=== PATIENT | male | born 1980 | race Caucasian/White ===

== ENCOUNTER 2019-03-29 10:41 | Outpatient (CLI) | payer BC ==
--- NOTE | 2019-03-29 11:19 | RAD ---
LUMBAR SPINE 2 VIEWS: Date: 03/29/19 HISTORY: Back pain. FINDINGS: There are degenerative changes with mild dextroscoliosis of the lumbar spine. No fracture, subluxatio n, or bony destruction seen. IMPRESSION: Lumbar spondylosis. POS: [facility]
== END 2019-03-29 10:42 | disposition home or self-care (01) ==
LOC: SCSRAD 10:41
PROVIDERS: ATTEND Family Medicine
DX: M54.9 Dorsalgia, unspecified (principal); M47.816 Spondylosis without myelopathy or radiculopathy, lumbar region
CPT/HCPCS: 72100

== ENCOUNTER 2019-04-15 07:35 | Outpatient (CLI) | payer BC ==
--- NOTE | 2019-04-15 09:51 | MRI ---
MRI OF THE LUMBAR SPINE WITHOUT IV CONTRAST: INDICATION: History of lumbar back pain for 5 years. COMPARISON: Lumbar spinal radiographs dated 03/29/2019. FINDINGS: There are 5 lumbar-type vertebrae. There are advanced Modic end plate degenerative changes at L3-4 and L4-5. The conus is seen to horace alejandra at L1. There are multiple T2 hyperintense lesions filling the left renal sinus without leia hy dronephrosis suspicious for multiple left peripelvic cysts. This is incompletely characterized. No lymphadenopathy is grossly evident. At L5-S1, there is mild facet joint degenerative change and a broad-based bulge, but no appreciable c entral canal or neural foraminal narrowing. At L4-5, there is an asymmetric to the right broad-based disk bulge with facet hypertrophy inducing m oderate to severe right lateral recess narrowing with potential for impingement of the traversing rig ht L5 nerve root. There is mild left and moderate right neural foraminal narrowing. At L3-4, there is an asymmetric to the left broad-based disk bulge inducing moderate central canal na rrowing and severe left lateral recess narrowing with probable impingement of the traversing left L4 nerve root. The asymmetric to the left disk bulge induces moderate left and mild right neural forami nal narrowing. At L2-3, there is a broad-based bulge. No appreciable central canal or neural foraminal narrowing. At L1-L2, there is no appreciable central canal or neural foraminal narrowing. At T12-L1, there is no appreciable central canal or neural foraminal narrowing. IMPRESSION: 1. Prominent disk degenerative facet osteoarthritic change at L3-4 and L4-5 inducing moderate centra l canal narrowing at L3-4 with severe left lateral recess narrowing with probable impingement of the traversing left L4 nerve root. There is moderate left neural foraminal narrowing at L3-4. 2. Asymmetric to the right broad-based disk bulge at L4-5 induces moderate right neural foraminal na rrowing with moderate to severe narrowing of the right lateral recess with potential for impingement of the traversing right L5 nerve root. 3. Multiple T2 hyperintense lobular lesions seen filling the left renal sinus suspicious for a parap elvic cyst. Renal ultrasound is recommended for confirmation. POS: [facility]
== END 2019-04-15 07:36 | disposition home or self-care (01) ==
LOC: BICMRI 07:35
PROVIDERS: ATTEND Family Medicine
DX: M54.5 Low back pain (principal); M47.816 Spondylosis without myelopathy or radiculopathy, lumbar region; M48.061 Spinal stenosis, lumbar region without neurogenic claudication
CPT/HCPCS: 72148

== ENCOUNTER 2019-04-28 14:25 | Outpatient (CLI) | payer BC ==
--- NOTE | 2019-04-28 15:24 | ULT ---
BILATERAL RENAL ULTRASOUND: Date: 04/28/19 INDICATION: Question mass lesion seen left renal pelvis on recent MRI of lumbar spine. The MRI findings suggested parapelvic cysts. FINDINGS: Right kidney measures 12.6 cm in length. Left kidney measures 11.8 cm. There are several cystic structures in the left renal pelvis. The largest is measured at approximatel y 2.0 cm. Findings correspond to MRI scan and suggest parapelvic cysts. Small cysts inferior pole right kidney. Urinary bladder is mildly distended and appears unremarkable. Prostate is mildly enlarged. IMPRESSION: Parapelvic cysts on the left. POS: [facility]
== END 2019-04-28 14:26 | disposition home or self-care (01) ==
LOC: BICULT 14:25
PROVIDERS: ATTEND Family Medicine
DX: N28.89 Other specified disorders of kidney and ureter (principal); N28.1 Cyst of kidney, acquired
CPT/HCPCS: 76770

== ENCOUNTER 2019-09-23 18:34 | Emergency (ER) | payer BC ==
[~2019-09-23 18:34] MED LIST: Iopamidol-370 76% 500 ML 1 ML ONE
[2019-09-23 19:21] LABS: #Basophils 0.1 thou/uL (0.0-0.2); #Eosinphils 0.2 thou/uL (0.0-0.7); #Lymphocytes 3.1 thou/uL (1.20-3.40); #Monocytes 0.6 thou/uL (0.11-0.59); #Neutrophils 3.6 thou/uL (1.40-6.50); %Basophils 1.6 % (0.0-1.0); %Eosinophils 2.4 % (0.0-10.0); %Lymphocytes 41.2 % (21.0-51.0); %Monocytes 7.7 % (0.0-10.0); %Neutrophils 47.1 % (42.0-75.0); Hemoglobin 15.6 g/dL (14.0-18.0); Mean Corpuscular HGB CONC 33.3 g/dL (32.0-36.0); Mean Corpuscular Hemoglobin 31.9 pg (27.0-31.0); Mean Corpuscular Volume 95.7 fL (78.0-98.0); Mean Platelet Volume 8.2 fL (7.4-10.4); Platelet Count 301 thou/uL (130-400); RBC Distribution Width 11.8 % (11.5-14.5); White Blood Cell (WBC) Count 7.6 thou/uL (4.8-10.8)
[2019-09-23 19:48] LABS: ALT (SGPT) 38 U/L (8-55); AST (SGOT) 23 U/L (5-34); Albumin 4.5 g/dL (3.5-5.0); Alkaline Phosphatase 74 U/L (40-110); Anion Gap 12 mmol/L (10-20); BUN (Urea Nitrogen) 18 mg/dL (8.9-20.6); Bilirubin, Total 0.3 mg/dL (0.2-1.2); CK (CPK) 166 U/L (30-200); Calc. Creatinine Clearance 0 mL/min (70-130); Calcium 9.6 mg/dL (7.8-10.44); Carbon Dioxide 29 mmol/L (22-29); Chloride 105 mmol/L (98-107); Estimated GFR-MDRD 61; Globulin 2.7 g/dL (2.4-3.5); Glucose 94 mg/dL (70-105); Potassium 3.8 mmol/L (3.5-5.1); Protein, Total 7.2 g/dL (6.0-8.3); Sodium 142 mmol/L (136-145)
--- NOTE | 2019-09-23 22:44 | CT ---
Exam: Head CT without contrast HISTORY: Headache. Blurred vision. COMPARISON: none FINDINGS: Hemorrhage: No intraparenchymal hemorrhage or extra-axial hematoma. Brain parenchyma: Cortical sargent-white matter differentiation is preserved. No mass effect or midline shift. Basilar cisterns are patent. Ventricular system: Ventricles and sulci are patent and symmetric. Calvarium: Intact. Sinuses and mastoid air cells: Adequate aeration. IMPRESSION: No acute intracranial process.
--- NOTE | 2019-09-23 22:46 | CT ---
EXAM: CT ANGIOGRAM OF THE HEAD AND NECK INDICATION: Stroke COMPARISON: None TECHNIQUE: CT angiogram of the head and neck are performed in the axial plane. Three-dimensional refo rmatted images are submitted for interpretation. Headache. Blurred vision. FINDINGS: CTA OF THE HEAD WITH AND WITHOUT CONTRAST: POSTCONTRAST CT OF BRAIN: Pathologic enhancement: No pathologic enhancement the brain. Orbits: Bilateral ocular lenses are appropriately located. Both globes are intact. Retrobulbar fat is preserved. Symmetric attenuation the optic nerves and ocular rectus muscles. CTA OF THE BRAIN: Intracranial internal carotid arteries:Symmetric enhancement and luminal diameter. Anterior circulation: Symmetric enhancement and luminal diameter the A1 segments, M1 segments, proxim al A2 segments and proximal MCA branches. No evidence of any aneurysm in the anterior circulation. Intracranial vertebral arteries: Symmetric and patent. Bilateral PICA artery origins are unremarkable . Posterior circulation: Basilar artery supplied by both vertebral arteries. Basilar artery and P1 segm ents have appropriate enhancement and luminal diameter. No evidence of a posterior circulation aneurysm. IMPRESSION: 1. No hemodynamically significant stenosis, occlusion or aneurysmal formation. No evidence of an aneu rysm at the level of the [place] of [place]. Transcribed Date/Time: 09/23/2019 11:01 PM
[2019-09-23] MEDS ORDERED: Acetaminophen 500 MG TAB ONE (22:50)
[2019-09-23] MEDS ORDERED: Metoclopramide HCl 10 MG/2 ML VIAL ONE (22:50)
== END 2019-09-24 00:11 | disposition home or self-care (01) ==
LOC: ERS 18:34
DX: R51 Headache (principal); E78.5 Hyperlipidemia, unspecified; I10 Essential (primary) hypertension
CPT/HCPCS: 36415; 70450; 70496; 80053; 82550; 84484; 85025; 93005; 96365; J2765; Q9967

== ENCOUNTER 2019-10-04 11:57 | Day surgery (SDC) | payer BC ==
[2019-10-01 10:01] VITALS: BMI 33.0
[~2019-10-04 11:57] MED LIST changes: -Iopamidol-370 76% 500 ML 1 ML ONE; +Ketorolac Tromethamine 30 MG/ML VIAL ONE; +Lidocaine 1% PF 5 ML VIAL ONE; +PROPOFOL 200 MG/20 ML VIAL ONE
[2019-10-04] MEDS ORDERED: Fentanyl 100 MCG/2 ML VIAL ONE ×2 (13:13→15:47)
[2019-10-04] MEDS ORDERED: Midazolam HCl 2 mg/2 ml Vial ONE (13:13)
[2019-10-04] MEDS ORDERED: Bupivacaine PF 0.5% 30 ML VIAL ONE (13:18)
[2019-10-04] MEDS ORDERED: Betamet Acet/Betamet Na Ph 30 MG/5 ML VIAL ONE (13:18)
[2019-10-04] MEDS ORDERED: Bacitracin Zinc Ointment 30 gm TUBE ONE (13:19)
--- NOTE | 2019-10-04 15:45 | OP ---
DATE OF PROCEDURE: 10/04/2019 PREOPERATIVE DIAGNOSIS: Left index finger ganglion. POSTOPERATIVE DIAGNOSIS AND FINDINGS: 2 cm mass, spongiform, consistent with giant cell tumor of tendon sheath, mass adherent to the tendon sheath extensor just distal to the insertion of central slip. PROCEDURE PERFORMED: Excision of mass, benign, 2 to 2.5 cm, consistent with giant cell tumor. ESTIMATED BLOOD LOSS: Less than or equal to 10 mL. TOURNIQUET TIME: 8 minutes. SPECIMEN SENT TO THE LAB: Yes. DESCRIPTION OF PROCEDURE: After successful general endotracheal anesthesia, the limb was prepped and draped. The patient given was 15 mL of 0.5 Marcaine block. Exsanguinated the limb, and then now waited 5 minutes for the block to take effect, and then made a zigzag incision over the mass. We carried through skin and subcutaneous tissue medially, we could see the mass was not like a ganglion, but spongiform hard white, consistent with a giant cell tumor. We then removed the mass using a blunt dissection. We obtained hemostasis, placed 3 mL of Celestone in the wound bed and closed the wound with interrupted 4-0 nylon in a simple pattern. A soft dressing was applied on this finger. The patient left the operating room without evidence of anesthetic or operative complication. Job ID: [id number]
[2019-10-04] MEDS ORDERED: Ketorolac Tromethamine 30 MG/ML VIAL ONE (15:47)
[2019-10-04] MEDS ORDERED: HYDROcodone/Acetaminophen 5/325 mg Tablet ONE (16:43)
--- NOTE | 2019-10-19 05:55 | PQF ---
[facility] POST DISCHARGE CLINICAL DOCUMENTATION IMPROVEMENT CLARIFICATION FORM l Todays Date: 10/02/19 l Patients Name CHARLES PIERCE l l Admit Date 10/04/19 l Disch Date 10/04/19 Substance Abuse Specialist Name Lizzy Lozano Email: [email or web address] Cell: [phone] To be completed by Substance Abuse Specialist: Present Clinical Indicators - Signs / Symptoms Results and Location in Medical Record [ ] Documentation of: [ ] [ ] Documentation of: [ ] [ ] Documentation of: [ ] [ ] Documentation of: [ ] [ ] Risks [ ] [ ] [ ] Treatment [ ] Excison of mass, benign Query for the margin size of the the finger mass excised. [ ] [ ] To be completed by Physician: TAMIKA SERNA The documentation in this patients record requires clarification to ensure coding compliance and accuracy. Check the appropriate box and include in your discharge summary. [ ] [ ] [ ] [ ] Please check this box if this does not apply to this patient [ ] Unable to determine [ ] Other diagnosis: Review the following information and exercise your independent professional judgment in responding to the clarification. Based upon the clinical findings, risk factors, and treatment, please clarify if you are treating one of the above probable or suspected diagnoses. Physician Signature: Date Time MTDD
== END 2019-10-04 17:00 | disposition home or self-care (01) ==
LOC: SDC 11:57
PROVIDERS: ATTEND Orthopaedic Surgery Hand Surgery
DX: L72.0 Epidermal cyst (principal); E78.5 Hyperlipidemia, unspecified; Z79.51 Long term (current) use of inhaled steroids; Z87.891 Personal history of nicotine dependence; Z88.0 Allergy status to penicillin
CPT/HCPCS: 88304; J0690; J0702; J1885; J2001; J2250; J2704; J3010; J3490; S0020

== ENCOUNTER 2022-03-07 14:02 | Outpatient (CLI) | payer BC | END 2022-03-07 14:03 | disposition home or self-care (01) | LOC: BICULT 14:02 | PROVIDERS: ATTEND Family Medicine | DX: N28.1 Cyst of kidney, acquired (principal) | CPT/HCPCS: 76770 ==

== ENCOUNTER 2022-04-22 08:26 | Outpatient (CLI) | payer BC | END 2022-04-22 08:27 | disposition home or self-care (01) | LOC: SCSMRI 08:26 | PROVIDERS: ATTEND Neurological Surgery | DX: M47.22 Other spondylosis with radiculopathy, cervical region (principal); M47.23 Other spondylosis with radiculopathy, cervicothoracic region | CPT/HCPCS: 72141 ==

== ENCOUNTER 2022-05-08 16:32 | Emergency (ER) | payer BC ==
[2022-05-08] MEDS ORDERED: diphenhydrAMINE 25 MG CAP ONE (19:14)
[2022-05-08] MEDS ORDERED: Acetaminophen 500 MG TAB ONE (19:14)
[2022-05-08] MEDS ORDERED: Metoclopramide HCl 10 MG/2 ML VIAL ONE (19:15)
[2022-05-08] MEDS ORDERED: Ketorolac Tromethamine 30 MG/ML VIAL ONE (19:15)
[2022-05-08] MEDS ORDERED: diphenhydrAMINE 50 MG/ML VIAL ONE (19:17)
== END 2022-05-08 21:00 | disposition home or self-care (01) ==
LOC: ERS 16:32
DX: R51.9 Headache, unspecified (principal); E78.5 Hyperlipidemia, unspecified; I10 Essential (primary) hypertension
CPT/HCPCS: 70450; 96365; 96375; J1200; J1885; J2765

== ENCOUNTER 2022-07-05 16:54 | Outpatient (CLI) | payer BC ==
[2022-07-05 17:33] LABS: #Basophils 0.1 10x3/uL (0.0-0.2); #Eosinphils 0.1 10x3/uL (0.0-0.5); #Monocytes 0.7 10x3/uL (0.0-1.1); #Neutrophils 4.3 10x3/uL (1.5-8.4); %Basophils 0.6 % (0.0-2.0); %Eosinophils 1.5 % (0.0-6.0); %Lymphocytes 37.2 % (18.0-47.0); %Monocytes 8.9 % (0.0-10.0); %Neutrophils 51.7 % (40.0-75.0); Hemoglobin 15.1 g/dL (13.5-17.5); Mean Corpuscular HGB CONC 34.2 g/dL (32.0-36.0); Mean Corpuscular Hemoglobin 31.5 pg (27.0-33.0); Mean Corpuscular Volume 92.3 fl (81.2-95.1); Mean Platelet Volume 10.5 fl (7.4-10.4); Platelet Count 354 10x3/uL (150-450); RBC Distribution Width 13.2 % (11.5-14.5); Red Blood Cell (RBC) Count 4.79 10x6/uL (4.32-5.72); White Blood Cell (WBC) Count 8.3 10x3/uL (3.5-10.5)
== END 2022-07-05 16:55 | disposition home or self-care (01) ==
LOC: LABBT 16:54
PROVIDERS: ATTEND Orthopaedic Surgery Hand Surgery
DX: Z01.812 Encounter for preprocedural laboratory examination (principal); G56.03 Carpal tunnel syndrome, bilateral upper limbs
CPT/HCPCS: 85025

== ENCOUNTER 2022-07-09 07:59 | Day surgery (SDC) | payer BC ==
[2022-07-05 14:48] VITALS: BMI 31.5
[2022-07-09] MEDS ORDERED: CEFAZOLIN 2 GM VIAL ONE (09:01)
[2022-07-09] MEDS ORDERED: Sodium Chloride 0.9% 100 ML ONE (09:01)
[2022-07-09] MEDS ORDERED: Bupivacaine PF 0.5% 30 ML VIAL ONE ×2 (09:01→09:03)
[2022-07-09] MEDS ORDERED: Bacitracin Zinc Ointment 30 gm TUBE ONE (09:03)
[2022-07-09] MEDS ORDERED: Betamet Acet/Betamet Na Ph 30 MG/5 ML VIAL ONE (09:03)
[2022-07-09] MEDS ORDERED: fentaNYL PF 100 MCG/2 ML SYRINGE ONE ×2 (09:05→11:00)
[2022-07-09] MEDS ORDERED: PROPOFOL 200 MG/20 ML VIAL ONE (09:08)
[2022-07-09] MEDS ORDERED: Ondansetron PF 4 MG/2 ML Vial ONE (09:08)
[2022-07-09] MEDS ORDERED: Dexamethasone 20 MG/5 ML VIAL ONE (09:08)
[2022-07-09] MEDS ORDERED: Ketorolac Tromethamine 30 MG/ML VIAL ONE ×2 (09:08→11:00)
[2022-07-09] MEDS ORDERED: HYDROcodone/Acetaminophen 5/325 mg Tablet ONE (12:03)
[2022-07-09] MEDS ORDERED: Pregabalin 50 MG CAP PO SCH (12:30)
== END 2022-07-09 13:00 | disposition home or self-care (01) ==
LOC: SDC 07:59
PROVIDERS: ATTEND Orthopaedic Surgery Hand Surgery
PROC: 01N50ZZ Release Median Nerve, Open Approach (ICD-10-PCS; principal; 2022-07-09)
DX: G56.03 Carpal tunnel syndrome, bilateral upper limbs (principal); G56.23 Lesion of ulnar nerve, bilateral upper limbs; G54.0 Brachial plexus disorders; M18.0 Bilateral primary osteoarthritis of first carpometacarpal joints; E78.5 Hyperlipidemia, unspecified; G47.00 Insomnia, unspecified; F17.210 Nicotine dependence, cigarettes, uncomplicated; Z88.8 Allergy status to other drugs, medicaments and biological substances
CPT/HCPCS: J0702; J1100; J1885; J2405; J2704; J3490; S0020

== ENCOUNTER 2022-08-27 11:46 | Outpatient (CLI) | payer BC | END 2022-08-27 11:47 | disposition home or self-care (01) | LOC: BICULT 11:46 | PROVIDERS: ATTEND Urology | DX: N13.30 Unspecified hydronephrosis (principal); N28.1 Cyst of kidney, acquired | CPT/HCPCS: 76770 ==

== ENCOUNTER 2023-08-14 15:34 | Outpatient (CLI) | payer BC | END 2023-08-14 15:35 | disposition home or self-care (01) | LOC: ULT 15:34 | PROVIDERS: ATTEND Urology | DX: N50.812 Left testicular pain (principal) | CPT/HCPCS: 76870; 93976 ==